=== PATIENT | female | born 2000 ===

== ENCOUNTER 2020-08-29 11:41 | Inpatient (IN) | payer MEDICAID, OTHER ==
[2020-08-29] MEDS ORDERED: OXYTOCIN DRIP 30,000 MILLIUNITS/500 ML BAG IV ONE (12:57)
[2020-08-29] MEDS ORDERED: LACTATED RINGERS 1,000 ML ONE (12:57)
[2020-08-29] MEDS ORDERED: miSOPROStol 200 MCG TAB ONE (13:16)
[2020-08-29] MEDS ORDERED: TERBUTALINE 1 MG/1 ML INJ SUB-Q PRN (13:26)
[2020-08-29] MEDS ORDERED: ePHEDrine SULFATE 50 MG/1 ML INJ IV PRN (13:26)
[2020-08-29] MEDS ORDERED: fentaNYL 100 MCG/2 ML INJ IV PRN (13:26)
[2020-08-29] MEDS ORDERED: OXYTOCIN 10 UNIT/1 ML INJ IM PRN (13:26)
[2020-08-29] MEDS ORDERED: CARBOPROST TROMETHAMINE 250 MCG/1 ML INJ IM PRN (13:26)
[2020-08-29] MEDS ORDERED: METHYLERGONOVINE MALEATE 0.2 MG/ML VIAL IM PRN (13:26)
[2020-08-29] MEDS ORDERED: miSOPROStol 200 MCG TAB PR PRN (13:26)
[2020-08-29] MEDS ORDERED: LIDOCAINE (2%) 20 MG/1 ML VIAL 20 ML MDV INFILTRATI NR (13:26)
[2020-08-29 13:59] LABS: Hematocrit 41.3 % (30.3-42.9); Hemoglobin 14.1 gm/dl (10.1-14.3); Mean Corpuscular HGB Conc 34 % (30-34); Mean Corpuscular Volume 88 fl (79-97); Platelet Count 216 K/mm3 (140-440); Red Blood Count 4.72 M/mm3 (3.65-5.03); Red Cell Distribution Width 13.9 % (13.2-15.2)
[2020-08-29] MEDS ORDERED: ONDANSETRON 4 MG/2 ML INJ IV PRN (14:00)
[2020-08-29] MEDS ORDERED: BUTORPHANOL 2 MG/1 ML INJ IV PRN ×2 (14:00)
[2020-08-29] MEDS ORDERED: WITCH HAZEL/ GLYCERIN PAD TP PRN (14:00)
[2020-08-29] MEDS ORDERED: diphenhydrAMINE 25 MG CAP PO PRN (14:00)
[2020-08-29] MEDS ORDERED: PROMETHAZINE 25 MG TAB PO PRN (14:00)
[2020-08-29] MEDS ORDERED: LACTATED RINGERS 1,000 ML IV SCH (14:00)
[2020-08-29] MEDS ORDERED: PROMETHAZINE 25 MG RECT SUPP PR PRN (14:00)
[2020-08-29] MEDS ORDERED: LANOLIN/ZINC/DIMETHICONE (LANSINOH) 7 GM TP PRN (14:00)
[2020-08-29] MEDS ORDERED: LOPERAMIDE 2 MG CAP PO PRN (14:00)
[2020-08-29] MEDS ORDERED: oxyCODONE /ACETAMINOPHEN 5-325MG TAB PO PRN (14:00)
[2020-08-29] MEDS ORDERED: ACETAMINOPHEN 325 MG TAB PO PRN (14:00)
[2020-08-29] MEDS ORDERED: OXYTOCIN DRIP 30 UNITS/500 ML BAG IV SCH ×2 (14:00)
--- NOTE | 2020-08-29 14:50 | History and Physical Report ---
History of Present Illness Date of examination: 08/29/20 Date of admission: 08/29/20 13:01 Chief complaint: "I'm in labor" History of present illness: 20 y/o single was sent to [facility] @ 38.5 wks by her PN provider r/t c/o reg uc x several hours. Pt denies VB or LOF and admits to active FM. She initiated her pnc @ [facility] @ 17 3/7 wks. She had an uncomplicated preg. Med/surg hx unremarkable. Family hx of epilespy and HTN. Pt was found to be in labor and was admitted to L&D for delivery. Her GBS is neg. Past History Past Medical History: no pertinent history Past Surgical History: no surgical history Family/Genetic History: hypertension, other (epilepsy) Social history: single, full code - Obstetrical History Expected Date of Delivery: 09/07/20 Actual Gestation: 38 Week(s) 5 Day(s) : 2 Para: 1 Number of Living Children: 1 Medications and Allergies Allergies Allergy/AdvReac Type Severity Reaction Status Date / Time No Known Allergies Allergy Verified 08/29/20 12:04 Active Meds: Active Medications Acetaminophen (Acetaminophen 325 Mg Tab) 650 mg PO Q4H PRN PRN Reason: Pain, Mild (1-3) Bisacodyl (Bisacodyl 10 Mg Rect Supp) 10 mg NM BID PRN PRN Reason: Constipation Butorphanol Tartrate (Butorphanol 2 Mg/1 Ml Inj) 2 mg IV Q2H PRN PRN Reason: Pain , Severe (7-10) Butorphanol Tartrate (Butorphanol 2 Mg/1 Ml Inj) 1 mg IV Q2H PRN PRN Reason: Pain, Moderate(4-6) LABOR PAIN Carboprost Tromethamine (Carboprost Tromethamine 250 Mcg/1 Ml Inj) 250 mcg IM ONCE PRN PRN Reason: Uterine Bleeding Stop: 08/30/20 13:25 Diphenhydramine HCl (Diphenhydramine 25 Mg Cap) 25 mg PO Q6H PRN PRN Reason: Itching Ephedrine Sulfate (Ephedrine Sulfate 50 Mg/1 Ml Inj) 10 mg IV Q2M PRN PRN Reason: Hypotension Fentanyl (Fentanyl 100 Mcg/2 Ml Inj) 100 mcg IV Q2H PRN PRN Reason: Pain,Severe (7-10) LABOR PAIN Oxytocin/Sodium Chloride (Pitocin/Ns 30 Unit/500ml) 30 units in 500 mls @ 2 mls/hr IV TITR ISMAEL; Protocol Lactated Ringer's (Lactated Ringers) 1,000 mls @ 125 mls/hr IV DIRECT ISMAEL Oxytocin/Sodium Chloride (Pitocin/Ns 30 Unit/500ml) 30 units in 500 mls @ 40 mls/hr IV TITR ISMAEL; Protocol Ibuprofen (Ibuprofen 600 Mg Tab) 600 mg PO Q6H ISMAEL Lidocaine (Lidocaine (2%) 20 Mg/1 Ml Vial 20 Ml Mdv) 20 ml INFILTRATI ONCE NR Stop: 08/29/20 16:00 Loperamide HCl (Loperamide 2 Mg Cap) 2 mg PO ONCE PRN PRN Reason: give with Hemabate Stop: 08/30/20 13:59 Magnesium Hydroxide (Magnesium Hydroxide (Mom) Oral Liqd Udc) 30 ml PO HS PRN PRN Reason: Constipation Methylergonovine Maleate (Methylergonovine Maleate 0.2 Mg/Ml Vial) 0.2 mg IM ONCE PRN PRN Reason: Uterine Bleeding Stop: 08/30/20 13:25 Mineral Oil (Mineral Oil 30 Ml Oral Liqd) 30 ml PO QHS PRN PRN Reason: Constipation Misoprostol (Misoprostol 200 Mcg Tab) 800 mcg NM ONCE PRN PRN Reason: Uterine Bleeding Stop: 08/29/20 15:00 Multi-Ingredient Ointment (Lanolin/Zinc/Dimethicone (Lansinoh) 7 Gm) 1 applic TP PRN PRN PRN Reason: Sore Nipples Ondansetron HCl (Ondansetron 4 Mg/2 Ml Inj) 4 mg IV Q8H PRN PRN Reason: Nausea And Vomiting Oxycodone/Acetaminophen (Oxycodone /Acetaminophen 5-325mg Tab) 1 tab PO Q6H PRN PRN Reason: Pain, Moderate (4-6) Oxytocin (Oxytocin 10 Unit/1 Ml Inj) 10 unit IM ONCE PRN PRN Reason: Uterine Bleeding Stop: 08/30/20 13:25 Promethazine HCl (Promethazine 25 Mg Rect Supp) 25 mg NM Q6H PRN PRN Reason: Nausea And Vomiting Promethazine HCl (Promethazine 25 Mg Tab) 25 mg PO Q6H PRN PRN Reason: Nausea And Vomiting Sodium Chloride (Sodium Chloride 0.9% 10 Ml Flush Syringe) 10 ml IV PRN NR Stop: 09/10/20 13:59 Terbutaline Sulfate (Terbutaline 1 Mg/1 Ml Inj) 0.25 mg SUB-Q ONCE PRN PRN Reason: Hyperstimulation/Hypertonicity Stop: 08/30/20 13:25 Witch Aria/Glycerin (Witch Aria/ Glycerin Pad) 1 each TP PRN PRN PRN Reason: Hemorrhoid/cleansing/soothing Review of Systems All systems: negative Eyes: deferred Ears, nose, mouth and throat: deferred Breasts: normal Genitourinary: normal appearance Rectal Exam: normal exam-external/orifice - Vital Signs Vital signs: Vital Signs Temp Pulse Resp BP Pulse Ox 98 F 110 H 20 132/83 98 08/29/20 12:17 08/29/20 12:17 08/29/20 12:17 08/29/20 12:17 08/29/20 12:17 Temp Pulse Resp BP Pulse Ox 98 F 110 H 20 133/75 99 08/29/20 12:17 08/29/20 14:14 08/29/20 12:17 08/29/20 14:14 08/29/20 12:42 - Physical Exam Breasts: Positive: normal Abdomen: Positive: normal appearance, soft, normal bowel sounds Genitourinary (Female): Positive: normal external genitalia, normal perenium Vulva: both: normal Vagina: Positive: normal moisture Uterus: Positive: enlarged, normal contour, other (gravid) Adnexa: both: normal Anus/Rectum: Positive: normal perianal skin Extremities: Positive: normal - Obstetrical FHR: auscultation normal, category 1 Uterine Contraction Monitor Mode: External Cervical Dilatation: 9 Cervical Effacement Percentage: 100 station: 0 Uterine Contraction Pattern: Regular Uterine Tone Measurement Phase: Resting Uterine Contraction Intensity: Strong/Firm Results Result Diagrams: 08/29/20 13:30 Abnormal lab results 08/29/20 Range/Units 13:30 WBC 12.7 H (4.5-11.0) K/mm3 All other labs normal. Assessment and Plan A: IUP@ 38.5 wks GBS neg P: Admit to L&D Continuous monitoring Anticipate - Patient Problems (1) Supervision of normal IUP (intrauterine ) in multigravida Current Visit: Yes Status: Acute
--- NOTE | 2020-08-29 15:02 | Procedure Note ---
OB Delivery Note - Delivery Date of Delivery: 08/29/20 Surgeon: ABBIE POLLOCK Estimated blood loss: 300cc - Vaginal Delivery presentation: vertex Delivery position: OA Intrapartum events: precipitous labor- <3hr Delivery induction: none Delivery monitor: external FHT, external uterine Route of delivery: Delivery placenta: spontaneous Delivery cord: 3 umbilical vessels Episiotomy: none Delivery laceration: none Anesthesia: none Delivery comments: Upon arrival to pt's cervical exam was found to be 10/100%/0 and the pt was pushing. of a live screaming viable female in OA position. Spontaneous delivery of head and shoulders. Infant was placed on mom's chest for skin to skin bonding. Delayed cord clamping while NICU nurse dried and stimulated baby. Cord was clamped x 2 then FOB was guided in cutting the cord. was taken to warmer by NICU nurse for an assess 8/9. Spontaneous delivery of an intact placenta with 3CV. FF@ U2. Mod amt of bleeding noted post placenta delivery. Homeostasis was maintained with fundal massage, IV Pitocin and Cytotec 800mcg NH. An exploration of tears revealed none. EBL 300cc. FW 3260. Mom and baby was left in stable condition with nurse. - A at 1 minute: 8 at 5 minutes: 9 Infant Gender: Female
[2020-08-29] MEDS: IBUPROFEN 600 MG TAB PO SCH (20:00)
[2020-08-29] MEDS ORDERED: MINERAL OIL 30 ML ORAL LIQD PO PRN (22:00)
[2020-08-29] MEDS ORDERED: MAGNESIUM HYDROXIDE (MOM) ORAL LIQD UDC PO PRN (22:00)
[2020-08-30] MEDS: IBUPROFEN 600 MG TAB PO SCH ×2 (02:00→05:50)
[2020-08-30] MEDS ORDERED: TETANUS,DIPH,PERTUSS(ACELL) VACCINE 0.5 ML SYRINGE IM ONE (06:10)
[2020-08-30 10:35] LABS: Hematocrit 33.5 % (30.3-42.9); Hemoglobin 11.1 gm/dl (10.1-14.3)
--- NOTE | 2020-08-30 11:26 | Progress Note ---
Assessment and Plan A: PP Day #1 Stable P: Follow Routine Orders Depo Provera 150mg IM prior to discharge D/C Home today per patient request RTO in 6 Weeks Subjective - Subjective Date of service: 08/30/20 Patient reports: appetite normal, voiding normally, pain well controlled, flatus, bowel movement, ambulating normally : doing well Objective - Vital Signs Latest vital signs: Vital Signs Temp Pulse Resp BP BP BP Pulse Ox 08/30/20 08:50 97.8 F 90 18 118/72 97 08/30/20 00:41 98.5 F 97 H 18 120/81 97 08/29/20 20:40 98.9 F 106 H 18 108/65 97 08/29/20 16:15 98.2 F 105 H 20 127/77 08/29/20 14:14 110 H 133/75 08/29/20 13:59 112 H 134/78 08/29/20 13:44 85 135/80 08/29/20 13:29 94 H 134/74 08/29/20 12:42 104 H 99 08/29/20 12:37 119 H 99 08/29/20 12:17 98 F 110 H 20 132/83 98 Intake and Output 08/29/20 08/30/20 08/30/20 22:59 06:59 14:59 Intake Total 780 360 Output Total 600 Balance 180 360 Intake: Oral 780 360 Output: Urine 600 Void 600 Other: Total, Intake Amount 360 360 Total, Output Amount 600 # Voids Void 1 1 # Bowel Movements 1 - Exam Breasts: Present: normal Cardiovascular: Present: Regular rate Lungs: Present: Clear to auscultation, Normal air movement Abdomen: Present: normal appearance, soft, normal bowel sounds Uterus: Present: normal, firm, fundal height below umbilicus Extremities: Present: normal - Labs Labs: Abnormal lab results 08/29/20 Range/Units 13:30 WBC 12.7 H (4.5-11.0) K/mm3
--- NOTE | 2020-08-30 11:28 | Discharge Summary ---
Providers - Providers Date of Admission: 08/29/20 13:01 Date of discharge: 08/30/20 Attending physician: JODEE KEITH MD Primary care physician: JODEE KEITH MD Hospitalization Reason for admission: active labor Delivery: Episiotomy: none Laceration: none Other procedures: none complications: none Discharge diagnosis: IUP at term delivered baby: female Condition at discharge: Good Disposition: DC-01 TO HOME OR SELFCARE Plan - Provider Discharge Summary Activity: routine, no sex for 6 weeks, no heavy lifting 4 weeks, no strenuous exercise Diet: routine Instructions: routine Additional instructions: [] Smoking cessation referral if applicable(refer to patient education folder for contact #) [] Refer to [facility] Booklet Call your doctor immediately for: * Fever > 100.5 * Heavy vaginal bleeding ( >1 pad per hour) * Severe persistent headache * Shortness of breath * Reddened, hot, painful area to leg or breast * Drainage or odor from incision. * Keep incision clean and dry at all times and follow doctor's instructions regarding bathing/showering - Follow up plan Follow up: JODEE KEITH MD [Primary Care Provider] - 6 Weeks
[2020-08-30] MEDS ORDERED: medroxyPROGESTERone ACETATE 150 MG/ML SYRINGE IM SCH (11:30)
[2020-08-30 18:23] VITALS: BP 132/70
== END 2020-08-30 18:09 | disposition home or self-care (01) | DRG 807 ==
LOC: TRG 11:41 → APU 11:42 → TRG 12:59 → LD 13:01 → OB 16:23
PROC: 10E0XZZ Delivery of Products of Conception, External Approach (ICD-10-PCS; principal; 2020-08-29)
DX: O62.3 Precipitate labor (principal); Z37.0 Single live birth; Z3A.38 38 weeks gestation of pregnancy; Z20.822 Contact with and (suspected) exposure to COVID-19
CPT/HCPCS: 36415; 59025; 85014; 85018; 85027; 86850; 86900; 86901; 90471; 90715; G0378; U0003